=== PATIENT | female | born 1965 | race Caucasian/White ===

== ENCOUNTER 2022-09-09 07:31 | Outpatient (REF) | payer MEDICARE, MEDICAID, SELFPAY ==
--- NOTE | ~2022-09-09 | XR_ITS ---
EXAMINATION: XR HAND/WRIST, BILATERAL XR ANKLE, BILATERAL XR FOOT, BILATERAL CLINICAL INFORMATION: Rheumatoid arthritis COMPARISON: None TECHNIQUE: 4 views of each hand/wrist. 3 views of each ankle. 3 views of each foot. FINDINGS: RIGHT HAND/WRIST: No periarticular osteopenia or active erosions. No suspicious soft tissue calcifications. 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 No acute osseous abnormality. LEFT HAND AND WRIST: No periarticular osteopenia or active erosions. No suspicious soft tissue calcifications. 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 No acute osseous abnormality. RIGHT ANKLE AND FOOT: The ankle mortise is preserved. There is periarticular osteopenia of the 5th metatarsal head with no definite erosion or joint space narrowing. No suspicious soft tissue calcification. Prominent heel spur. Mild hallux sesamoid osteoarthritis. LEFT ANKLE AND FOOT: The ankle mortise is preserved. There is periarticular osteopenia of the 5th metatarsal head with no definite erosion or joint space narrowing. No suspicious soft tissue calcific patient. Prominent heel spur. XR/XR hand wrist LT IMPRESSION: 1. Periarticular osteopenia of the 5th metatarsal head bilaterally. No other evidence to suggest an active inflammatory arthritis of either hand/wrist or either ankle/foot. 2. Mild degenerative findings as described. 3. Small bilateral heel spurs.
--- NOTE | ~2022-09-09 | XR_ITS ---
EXAMINATION: XR HAND/WRIST, BILATERAL XR ANKLE, BILATERAL XR FOOT, BILATERAL CLINICAL INFORMATION: Rheumatoid arthritis COMPARISON: None TECHNIQUE: 4 views of each hand/wrist. 3 views of each ankle. 3 views of each foot. FINDINGS: RIGHT HAND/WRIST: No periarticular osteopenia or active erosions. No suspicious soft tissue calcifications. 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 No acute osseous abnormality. LEFT HAND AND WRIST: No periarticular osteopenia or active erosions. No suspicious soft tissue calcifications. 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 No acute osseous abnormality. RIGHT ANKLE AND FOOT: The ankle mortise is preserved. There is periarticular osteopenia of the 5th metatarsal head with no definite erosion or joint space narrowing. No suspicious soft tissue calcification. Prominent heel spur. Mild hallux sesamoid osteoarthritis. LEFT ANKLE AND FOOT: The ankle mortise is preserved. There is periarticular osteopenia of the 5th metatarsal head with no definite erosion or joint space narrowing. No suspicious soft tissue calcific patient. Prominent heel spur. XR/XR foot LT min 3V IMPRESSION: 1. Periarticular osteopenia of the 5th metatarsal head bilaterally. No other evidence to suggest an active inflammatory arthritis of either hand/wrist or either ankle/foot. 2. Mild degenerative findings as described. 3. Small bilateral heel spurs.
--- NOTE | ~2022-09-09 | XR_ITS ---
EXAMINATION: XR HAND/WRIST, BILATERAL XR ANKLE, BILATERAL XR FOOT, BILATERAL CLINICAL INFORMATION: Rheumatoid arthritis COMPARISON: None TECHNIQUE: 4 views of each hand/wrist. 3 views of each ankle. 3 views of each foot. FINDINGS: RIGHT HAND/WRIST: No periarticular osteopenia or active erosions. No suspicious soft tissue calcifications. 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 No acute osseous abnormality. LEFT HAND AND WRIST: No periarticular osteopenia or active erosions. No suspicious soft tissue calcifications. 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 No acute osseous abnormality. RIGHT ANKLE AND FOOT: The ankle mortise is preserved. There is periarticular osteopenia of the 5th metatarsal head with no definite erosion or joint space narrowing. No suspicious soft tissue calcification. Prominent heel spur. Mild hallux sesamoid osteoarthritis. LEFT ANKLE AND FOOT: The ankle mortise is preserved. There is periarticular osteopenia of the 5th metatarsal head with no definite erosion or joint space narrowing. No suspicious soft tissue calcific patient. Prominent heel spur. XR/XR ankle LT min 3V IMPRESSION: 1. Periarticular osteopenia of the 5th metatarsal head bilaterally. No other evidence to suggest an active inflammatory arthritis of either hand/wrist or either ankle/foot. 2. Mild degenerative findings as described. 3. Small bilateral heel spurs.
--- NOTE | ~2022-09-09 | XR_ITS ---
EXAMINATION: XR HAND/WRIST, BILATERAL XR ANKLE, BILATERAL XR FOOT, BILATERAL CLINICAL INFORMATION: Rheumatoid arthritis COMPARISON: None TECHNIQUE: 4 views of each hand/wrist. 3 views of each ankle. 3 views of each foot. FINDINGS: RIGHT HAND/WRIST: No periarticular osteopenia or active erosions. No suspicious soft tissue calcifications. 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 No acute osseous abnormality. LEFT HAND AND WRIST: No periarticular osteopenia or active erosions. No suspicious soft tissue calcifications. 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 No acute osseous abnormality. RIGHT ANKLE AND FOOT: The ankle mortise is preserved. There is periarticular osteopenia of the 5th metatarsal head with no definite erosion or joint space narrowing. No suspicious soft tissue calcification. Prominent heel spur. Mild hallux sesamoid osteoarthritis. LEFT ANKLE AND FOOT: The ankle mortise is preserved. There is periarticular osteopenia of the 5th metatarsal head with no definite erosion or joint space narrowing. No suspicious soft tissue calcific patient. Prominent heel spur. XR/XR hand wrist RT IMPRESSION: 1. Periarticular osteopenia of the 5th metatarsal head bilaterally. No other evidence to suggest an active inflammatory arthritis of either hand/wrist or either ankle/foot. 2. Mild degenerative findings as described. 3. Small bilateral heel spurs.
--- NOTE | ~2022-09-09 | XR_ITS ---
EXAMINATION: XR HAND/WRIST, BILATERAL XR ANKLE, BILATERAL XR FOOT, BILATERAL CLINICAL INFORMATION: Rheumatoid arthritis COMPARISON: None TECHNIQUE: 4 views of each hand/wrist. 3 views of each ankle. 3 views of each foot. FINDINGS: RIGHT HAND/WRIST: No periarticular osteopenia or active erosions. No suspicious soft tissue calcifications. 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 No acute osseous abnormality. LEFT HAND AND WRIST: No periarticular osteopenia or active erosions. No suspicious soft tissue calcifications. 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 No acute osseous abnormality. RIGHT ANKLE AND FOOT: The ankle mortise is preserved. There is periarticular osteopenia of the 5th metatarsal head with no definite erosion or joint space narrowing. No suspicious soft tissue calcification. Prominent heel spur. Mild hallux sesamoid osteoarthritis. LEFT ANKLE AND FOOT: The ankle mortise is preserved. There is periarticular osteopenia of the 5th metatarsal head with no definite erosion or joint space narrowing. No suspicious soft tissue calcific patient. Prominent heel spur. XR/XR ankle RT min 3V IMPRESSION: 1. Periarticular osteopenia of the 5th metatarsal head bilaterally. No other evidence to suggest an active inflammatory arthritis of either hand/wrist or either ankle/foot. 2. Mild degenerative findings as described. 3. Small bilateral heel spurs.
--- NOTE | ~2022-09-09 | XR_ITS ---
EXAMINATION: XR HAND/WRIST, BILATERAL XR ANKLE, BILATERAL XR FOOT, BILATERAL CLINICAL INFORMATION: Rheumatoid arthritis COMPARISON: None TECHNIQUE: 4 views of each hand/wrist. 3 views of each ankle. 3 views of each foot. FINDINGS: RIGHT HAND/WRIST: No periarticular osteopenia or active erosions. No suspicious soft tissue calcifications. 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 No acute osseous abnormality. LEFT HAND AND WRIST: No periarticular osteopenia or active erosions. No suspicious soft tissue calcifications. 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 No acute osseous abnormality. RIGHT ANKLE AND FOOT: The ankle mortise is preserved. There is periarticular osteopenia of the 5th metatarsal head with no definite erosion or joint space narrowing. No suspicious soft tissue calcification. Prominent heel spur. Mild hallux sesamoid osteoarthritis. LEFT ANKLE AND FOOT: The ankle mortise is preserved. There is periarticular osteopenia of the 5th metatarsal head with no definite erosion or joint space narrowing. No suspicious soft tissue calcific patient. Prominent heel spur. XR/XR foot RT min 3V IMPRESSION: 1. Periarticular osteopenia of the 5th metatarsal head bilaterally. No other evidence to suggest an active inflammatory arthritis of either hand/wrist or either ankle/foot. 2. Mild degenerative findings as described. 3. Small bilateral heel spurs.
[2022-09-09 09:03] LABS: MANUAL DIFF FLAG NO
[2022-09-09 09:22] LABS: Basophils Percent Auto 0.5 % (0-2); Eosinophils Absolute Auto 0.3 X10*3/uL (0.0-0.4); Eosinophils Percent Auto 4.5 % (0-4); Hematocrit 39.2 % (37.0-47.0); Hemoglobin 12.3 g/dl (12.0-16.0); Imm Gran Abs Auto 0.02 X10*3/uL (0.00-0.03); Imm Gran Pct Auto 0.3 % (0.0-0.4); Lymphocytes Absolute Auto 1.7 X10*3/uL (1.2-4.9); Lymphocytes Percent Auto 22.3 % (20-40); Mean Corpuscular HGB Conc 31.4 g/dl (31.0-35.0); Mean Corpuscular Hemoglobin 27.5 pg (27.0-33.0); Mean Corpuscular Volume 87.7 fL (80.0-98.0); Mean Platelet Volume 9.5 fL (9.4-12.3); Monocytes Absolute Auto 0.5 X10*3/uL (0.1-1.2); Monocytes Percent Auto 6.9 % (2-11); Neutrophils Absolute Auto 4.8 x10*3/uL (2.0-8.3); Neutrophils Percent Auto 65.5 % (45-73); Platelet Count 234 X10*3/uL (160-400); Red Blood Count 4.47 X10*6/uL (4.20-5.50); Red Cell Distribution Width 13.3 % (11.0-16.0); White Blood Count 7.4 X10*3/uL (4.8-10.8)
[2022-09-09 10:01] LABS: Estimated Average Glucose 88 mg/dL; Hemoglobin A1c % 4.7 %
[2022-09-09 10:03] LABS: Erythrocyte Sedimentation Rate 13 MM/HR (0-20)
[2022-09-09 10:16] LABS: Alanine Aminotransferase 42 U/L (0-31); Albumin Level 4.1 g/dL (3.5-5.0); Alkaline Phosphatase 166 U/L (39-117); Anion Gap 13 (12-20); Aspartate Amino Transferase 38 U/L (5-31); Bilirubin Total 0.4 mg/dL (0.0-1.0); Blood Urea Nitrogen 18 mg/dL (9-16); C Reactive Protein < 0.10 mg/dL (< or = 0.50); Calcium 9.3 mg/dL (8.4-10.2); Carbon Dioxide 24 mmol/L (22-29); Chloride 107 mmol/L (96-108); Estimated Glomerular Filt Rate 55; Glucose Random 90 mg/dL (60-115); Potassium 4.3 mmol/L (3.3-5.1); Rheumatoid Factor 33.9 IU/mL (<15.0); Sodium 140 mmol/L (135-145); Total Protein 6.8 g/dL (6.5-8.0); Uric Acid 3.9 mg/dL (2.4-5.7)
[2022-09-10 07:54] LABS: Hepatitis B Core Antibody Nonreactive (Nonreactive); Hepatitis B Surface Antigen Negative (Negative); ~HepC Num1 0.18 S/CO (0.00-0.79); ~Hepatitis A Antibody IgM Nonreactive (Nonreactive); ~Hepatitis B Surface Antibody NONREACTIVE (Nonreactive); ~Hepatitis C Antibody Nonreactive (Nonreactive)
[2022-09-10 12:53] LABS: Cyclic Citrullinated Peptide >250 UNITS
[2022-09-11 21:32] LABS: TS Negative Control Passed; TS Panel A 0; TS Panel B 0; TS Positive Control Passed; TSpotTB Negative (Negative)
[2022-09-11 21:47] LABS: Prot Elec - Albumin 4.2 g/dL (3.8-4.8); Prot Elec - Alpha1 0.3 g/dL (0.2-0.3); Prot Elec - Alpha2 0.8 g/dL (0.5-0.9); Prot Elec - Beta 1 0.6 g/dL (0.4-0.6); Prot Elec - Beta 2 0.5 g/dL (0.2-0.5); Prot Elec - Gamma 0.8 g/dL (0.8-1.7); Prot Elec - Total Protein 7.3 g/dL (6.1-8.1)
[2022-09-12 08:59] LABS: IgA 327 mg/dL (47-310); IgG 907 mg/dL (600-1640); IgM 143 mg/dL (50-300)
== END 2022-09-09 07:32 | disposition home or self-care (01) ==
LOC: HO.LAB 07:31
PROVIDERS: PCP Physician Assistant Medical; Visit Provider Student in an Organized Health Care Education/Training Program
DX: Z11.7 Encounter for testing for latent tuberculosis infection (principal); Z11.59 Encounter for screening for other viral diseases; Z13.1 Encounter for screening for diabetes mellitus; M05.79 Rheumatoid arthritis with rheumatoid factor of multiple sites without organ or systems involvement; M25.541 Pain in joints of right hand; R74.8 Abnormal levels of other serum enzymes
CPT/HCPCS: 36415; 73110; 73130; 73610; 73630; 80053; 82784; 83036; 84165; 84550; 85025; 85652; 86140; 86200; 86334; 86431; 86481; 86704; 86706; 86709; 86803; 87340; 99202

== ENCOUNTER → 2022-11-28 10:34 | Outpatient (BNVA) | payer MEDICARE, MEDICAID, SELFPAY | PROVIDERS: PCP Physician Assistant Medical; Visit Provider Student in an Organized Health Care Education/Training Program | DX: G47.62 Sleep related leg cramps (principal); M05.79 Rheumatoid arthritis with rheumatoid factor of multiple sites without organ or systems involvement; R74.01 Elevation of levels of liver transaminase levels | CPT/HCPCS: 36415; 80053; 83735; 99212 ==